=== PATIENT | male | born 1975 | race Caucasian/White ===

== ENCOUNTER 2022-12-11 15:57 | Outpatient (CLI) | payer OTHER, SELFPAY ==
--- NOTE | 2022-12-11 16:16 | XR_ITS ---
WS: [id number] Lumbar spine, 3 views, 12/11/2022 Clinical Data: S39.012A - Strain of muscle, fascia and tendon of lower b... Comparison: None. Findings: No compression fractures or subluxation is seen. No disc space narrowing is seen. The transverse proc esses and SI joints are normal. There is a small osteophyte at the anterior superior margin of L4. XR/XR lumbar spine 2-3V* [id number] Impression: Minimal L4 osteoarthritis.
== END 2022-12-11 15:58 | disposition home or self-care (01) ==
LOC: RAD 16:07
PROVIDERS: PCP Family Medicine; Visit Provider Family Medicine
DX: S39.012A Strain of muscle, fascia and tendon of lower back, initial encounter (principal); X58.XXXA Exposure to other specified factors, initial encounter; M47.896 Other spondylosis, lumbar region
CPT/HCPCS: 72100